=== PATIENT | male | born 1970 | race Hispanic/Latino ===

== ENCOUNTER 2022-01-31 14:33 | Inpatient (IN) | payer OTHER ==
[~2022-01-31] VITALS: Ht 167.6 cm; Wt 84.5 kg
[2022-01-31 14:58] LABS: BASOPHILS % (AUTO) 0.5 % (0.0-5.0); EOSINOPHILS % (AUTO) 2.7 % (0.0-8.0); HEMATOCRIT 41.4 % (42-54); LYMPHOCYTES % (AUTO) 16.3 % (21.0-51.0); MEAN CORPUSCULAR HEMOGLOBIN 27.9 pg (27.0-33.0); MEAN CORPUSCULAR HGB CONC 32.1 g/dL (32.0-36.0); MEAN CORPUSCULAR VOLUME 86.8 fL (79-99); MONOCYTES % (AUTO) 9.2 % (3.0-13.0); NEUTROPHILS % (AUTO) 70.8 % (40.0-77.0); PLATELET COUNT (AUTO) 294 K/uL (130-400); RED BLOOD CELL COUNT(AUTO) 4.77 MIL/uL (4.50-6.20)
[2022-01-31 15:08] LABS: CREATININE 1.1 mg/dL (0.5-1.5); POTASSIUM 3.7 mmol/L (3.5-5.1)
[2022-01-31 15:13] LABS: ALBUMIN 3.2 g/dL (3.5-5.0); BILIRUBIN,TOTAL 0.6 mg/dL (0.2-1.0); TOTAL PROTEIN, SERUM 7.9 g/dL (6.0-8.3)
[2022-01-31 15:27] LABS: APPEARANCE,URINE Clear (CLEAR); BILIRUBIN,URINE Negative (NEGATIVE); COLOR,URINE Dark Yellow (YELLOW); GLUCOSE, URINE (UA) Negative (NEGATIVE); KETONES,URINE Trace mg/dL (NEGATIVE); LEUKOCYTE ESTERASE ,URINE Negative (NEGATIVE); NITRATE,URINE Negative (NEGATIVE); OCCULT BLOOD,URINE Trace (NEGATIVE); PH,URINE 5.5 (5.0-8.0); PROTEIN,URINE POS 1+ mg/dL (NEGATIVE)
[2022-01-31 15:36] LABS: BACTERIA,URINE Few /HPF (None Seen); MUCUS,URINE Moderate LPF (None Seen); SQUAMOUS EPITHELIAL CELL,UR Few /HPF (0-2)
[2022-01-31] MEDS ORDERED: MORPHINE 2 MG SYG IV PRN (18:30)
[2022-01-31] MEDS ORDERED: ONDANSETRON 4MG INJ IV PRN (18:30)
[2022-01-31] MEDS: ZOSYN 3.375GM +NS 50ML IV SCH (18:35)
[2022-01-31] MEDS ORDERED: FAMOTIDINE 20MG VIAL IV SCH (21:00)
[2022-01-31 23:35] VITALS: BP 137/89
[2022-02-01] MEDS: 0.9%NACL 1000ML 1,000 ML IV SCH ×2 (04:30→14:55)
[2022-02-01 06:00] LABS: BASOPHILS % (AUTO) 0.4 % (0.0-5.0); EOSINOPHILS % (AUTO) 2.8 % (0.0-8.0); HEMATOCRIT 38.6 % (42-54); LYMPHOCYTES % (AUTO) 16.3 % (21.0-51.0); MEAN CORPUSCULAR HEMOGLOBIN 28.2 pg (27.0-33.0); MEAN CORPUSCULAR HGB CONC 33.7 g/dL (32.0-36.0); MEAN CORPUSCULAR VOLUME 83.7 fL (79-99); MONOCYTES % (AUTO) 9.2 % (3.0-13.0); PLATELET COUNT (AUTO) 281 K/uL (130-400); RED BLOOD CELL COUNT(AUTO) 4.61 MIL/uL (4.50-6.20); RED CELL DISTRIBUTION WIDTH 12.6 % (11.0-15.5); WHITE BLOOD COUNT (AUTO) 9.6 K/uL (4.8-10.8)
[2022-02-01 06:13] LABS: INR 0.98 (0.85-1.15); PROTHROMBIN TIME 10.7 SEC (9.6-11.6)
[2022-02-01 06:15] LABS: PARTIAL THROMBOPLASTIN TIME 27.5 SEC (26.3-35.5)
[2022-02-01 06:22] LABS: CREATININE 1.1 mg/dL (0.5-1.5); MAGNESIUM 1.9 mg/dL (1.80-2.40); PHOSPHORUS 3.5 mg/dL (2.5-4.9); POTASSIUM 3.3 mmol/L (3.5-5.1)
[2022-02-01] MEDS ORDERED: POTASSIUM CHLORIDE 20MEQ/100ML 100 ML IV PRN (07:00)
[2022-02-01] MEDS ORDERED: POTASSIUM CHLORIDE 10% ELIXIR 20 MEQ/15 ML UDCUP PO PRN (07:00)
[2022-02-01] MEDS ORDERED: LIDOCAINE HCL-MPF 1% 2ML VIAL IV PRN (07:00)
[2022-02-01] MEDS: KCL 20 MEQ ERTAB PO PRN ×3 (07:01→14:54)
[2022-02-01] MEDS ORDERED: DIATR MEGLU/DIATRIZOATE SODIUM 30 ML BOTTLE ONE (07:30)
[2022-02-01 08:00] VITALS: BP 127/77
[2022-02-01] MEDS ORDERED: IOHEXOL-350 75 ML VIAL IV ONE (11:15)
[2022-02-01] MEDS: FAMOTIDINE 20MG TAB PO SCH ×2 (12:59→21:38)
[2022-02-01 16:00] VITALS: BP 114/71
[2022-02-01] MEDS: ZOSYN 3.375GM +NS 50ML IV SCH (17:26)
[2022-02-01 20:00] VITALS: BP 151/84
[2022-02-02] VITALS (25 sets, daily range): BP systolic 128–158; BP diastolic 75–105
[2022-02-02] MEDS: 0.9%NACL 1000ML 1,000 ML IV SCH ×2 (00:30→16:01)
[2022-02-02 05:29] LABS: BASOPHILS % (AUTO) 0.6 % (0.0-5.0); EOSINOPHILS % (AUTO) 3.9 % (0.0-8.0); HEMATOCRIT 37.9 % (42-54); MEAN CORPUSCULAR HGB CONC 32.7 g/dL (32.0-36.0); MEAN CORPUSCULAR VOLUME 85.6 fL (79-99); MONOCYTES % (AUTO) 9.4 % (3.0-13.0); NEUTROPHILS % (AUTO) 64.6 % (40.0-77.0); PLATELET COUNT (AUTO) 291 K/uL (130-400); RED BLOOD CELL COUNT(AUTO) 4.43 MIL/uL (4.50-6.20); RED CELL DISTRIBUTION WIDTH 12.4 % (11.0-15.5); WHITE BLOOD COUNT (AUTO) 7.9 K/uL (4.8-10.8)
[2022-02-02 05:42] LABS: CREATININE 1.1 mg/dL (0.5-1.5); POTASSIUM 3.9 mmol/L (3.5-5.1)
[2022-02-02] MEDS: FAMOTIDINE 20MG TAB PO SCH ×2 (08:29→21:38)
[2022-02-02] MEDS ORDERED: CEFAZOLIN SODIUM 1 GM VIAL ONE ×3 (09:20→11:45)
[2022-02-02] MEDS ORDERED: LIDOCAINE 1%-EPI 1:100,000 20 ML VIAL IJ ONE (09:24)
[2022-02-02] MEDS ORDERED: BUPIVACAINE/PF 0.25% 30ML VIAL IJ ONE (09:24)
[2022-02-02] MEDS ORDERED: METOCLOPRAMIDE 10 MG/2 ML VIAL ONE (10:11)
[2022-02-02] MEDS ORDERED: PROPOFOL 10 MG/ML 20ML VIAL IV ONE (10:23)
[2022-02-02] MEDS ORDERED: MIDAZOLAM HCL 1 MG/ML 2ML VIAL ONE (10:23)
[2022-02-02] MEDS ORDERED: SUCCINYLCHOLINE CHLORIDE 20 MG/ML 10 ML VIAL ONE (10:23)
[2022-02-02] MEDS ORDERED: LIDOCAINE PF 100MG/5ML (2%) SYRINGE 5ML ONE (10:23)
[2022-02-02] MEDS ORDERED: ROCURONIUM 10MG/1ML SYR 10 MG/ML ML ONE (10:24)
[2022-02-02] MEDS ORDERED: FENTANYL CITRATE PF 50 MCG/1 ML 2ML VIAL ONE ×2 (10:24→10:58)
[2022-02-02] MEDS ORDERED: ONDANSETRON 4MG INJ ONE (10:34)
[2022-02-02] MEDS ORDERED: PIP/TAZ ZOSYN 3.375G 3.375 GM VIAL IVPB ONE (10:45)
[2022-02-02] MEDS ORDERED: PHENYLEPHRINE HCL 10 MG/ML 1ML VIAL IV ONE (10:46)
[2022-02-02] MEDS ORDERED: ZOSYN 3.375GM +NS 50ML IV ONE (11:30)
[2022-02-02] MEDS ORDERED: ROPIVACAINE 0.5% 5MG/ML 30ML IJ ONE (12:06)
[2022-02-02] MEDS ORDERED: 0.9%NACL 10ML VIAL ONE (12:07)
[2022-02-02] MEDS ORDERED: NEOSTIGMINE 5MG/5ML SYR IV ONE (12:22)
[2022-02-02] MEDS ORDERED: GLYCOPYRROLATE 1 MG/5 ML SYRINGE ONE (12:22)
[2022-02-02] MEDS ORDERED: MEPERIDINE-PF 25 MG/ML SYG ONE ×3 (13:05→13:37)
[2022-02-02] MEDS: MORPHINE 4 MG SYG IV PRN ×2 (18:06→23:02)
[2022-02-03] MEDS: 0.9%NACL 1000ML 1,000 ML IV SCH (00:11)
[2022-02-03] MEDS: MORPHINE 4 MG SYG IV PRN (04:09)
[2022-02-03] MEDS ORDERED: HYDROMORPHONE 1 MG INJ IVP ONE (04:30)
[2022-02-03 04:38] VITALS: BP 164/95
[2022-02-03] MEDS ORDERED: HYDROMORPHONE 1 MG INJ IVP PRN (05:00)
[2022-02-03 05:16] LABS: BASOPHILS % (AUTO) 0.3 % (0.0-5.0); EOSINOPHILS % (AUTO) 0.4 % (0.0-8.0); HEMATOCRIT 38.7 % (42-54); LYMPHOCYTES % (AUTO) 9.7 % (21.0-51.0); MEAN CORPUSCULAR HEMOGLOBIN 28.5 pg (27.0-33.0); MEAN CORPUSCULAR HGB CONC 34.1 g/dL (32.0-36.0); MEAN CORPUSCULAR VOLUME 83.6 fL (79-99); MONOCYTES % (AUTO) 10.7 % (3.0-13.0); NEUTROPHILS % (AUTO) 78.2 % (40.0-77.0); PLATELET COUNT (AUTO) 324 K/uL (130-400); RED BLOOD CELL COUNT(AUTO) 4.63 MIL/uL (4.50-6.20); RED CELL DISTRIBUTION WIDTH 12.6 % (11.0-15.5); WHITE BLOOD COUNT (AUTO) 11.7 K/uL (4.8-10.8)
[2022-02-03] MEDS: ZOSYN 3.375GM +NS 50ML IV SCH ×3 (05:23→20:29)
[2022-02-03] MEDS: OXYCODONE/ACETAMIN 5/325MG TAB PO PRN ×3 (05:39→17:56)
[2022-02-03 05:48] LABS: ALBUMIN 2.7 g/dL (3.5-5.0); BILIRUBIN,TOTAL 0.6 mg/dL (0.2-1.0); CREATININE 1.4 mg/dL (0.5-1.5); POTASSIUM 3.9 mmol/L (3.5-5.1)
[2022-02-03 07:45] VITALS: BP 157/98
[2022-02-03] MEDS: FAMOTIDINE 20MG TAB PO SCH ×2 (09:06→20:29)
[2022-02-03 11:40] VITALS: BP 153/93
[2022-02-03 15:45] VITALS: BP 131/87
[2022-02-03 21:49] VITALS: BP 123/87
[2022-02-03 23:54] VITALS: BP 155/91
[2022-02-04] MEDS: 0.9%NACL 1000ML 1,000 ML IV SCH (02:08)
[2022-02-04 04:24] VITALS: BP 156/94
[2022-02-04 05:30] LABS: HEMATOCRIT 35.5 % (42-54); MEAN CORPUSCULAR HEMOGLOBIN 27.4 pg (27.0-33.0); MEAN CORPUSCULAR HGB CONC 32.1 g/dL (32.0-36.0); MEAN CORPUSCULAR VOLUME 85.3 fL (79-99); RED BLOOD CELL COUNT(AUTO) 4.16 MIL/uL (4.50-6.20); RED CELL DISTRIBUTION WIDTH 12.7 % (11.0-15.5)
[2022-02-04 05:42] LABS: CREATININE 1.1 mg/dL (0.5-1.5); POTASSIUM 3.3 mmol/L (3.5-5.1)
[2022-02-04] MEDS: ZOSYN 3.375GM +NS 50ML IV SCH ×3 (05:51→21:07)
[2022-02-04] MEDS: KCL 20 MEQ ERTAB PO PRN ×4 (05:52→21:07)
[2022-02-04 07:45] VITALS: BP 160/97
[2022-02-04] MEDS: FAMOTIDINE 20MG TAB PO SCH ×2 (10:20→21:07)
[2022-02-04 11:45] VITALS: BP 157/105
[2022-02-04] MEDS ORDERED: BISACODYL 10 MG SUPP.RECT RC ONE (13:30)
[2022-02-04] MEDS ORDERED: MAGNESIUM CITRATE 296 ML SOLUTION PO ONE (13:30)
[2022-02-04 15:20] VITALS: BP 146/83
[2022-02-04] MEDS: KETOROLAC 30MG VIAL (30MG/ML) IVP PRN (19:20)
[2022-02-04 20:11] VITALS: BP 149/90
[2022-02-04 23:58] VITALS: BP 138/89
[2022-02-05] MEDS: KETOROLAC 30MG VIAL (30MG/ML) IVP PRN (03:49)
[2022-02-05 04:00] VITALS: BP 141/92
[2022-02-05 05:18] LABS: MEAN CORPUSCULAR HEMOGLOBIN 28.2 pg (27.0-33.0); MEAN CORPUSCULAR HGB CONC 32.6 g/dL (32.0-36.0); MEAN CORPUSCULAR VOLUME 86.4 fL (79-99); RED BLOOD CELL COUNT(AUTO) 4.4 MIL/uL (4.50-6.20); RED CELL DISTRIBUTION WIDTH 12.7 % (11.0-15.5); WHITE BLOOD COUNT (AUTO) 10.3 K/uL (4.8-10.8)
[2022-02-05 05:27] LABS: CREATININE 1.1 mg/dL (0.5-1.5); POTASSIUM 4.3 mmol/L (3.5-5.1)
[2022-02-05] MEDS: ZOSYN 3.375GM +NS 50ML IV SCH (05:33)
[2022-02-05] MEDS: FAMOTIDINE 20MG TAB PO SCH (08:43)
[2022-02-05] MEDS: OXYCODONE/ACETAMIN 5/325MG TAB PO PRN (08:47)
[2022-02-05] MEDS ORDERED: LEVO500T90 PO (09:15)
[2022-02-05] MEDS ORDERED: METR-172 PO (09:15)
[2022-02-05 10:30] VITALS: BP 132/71
== END 2022-02-05 12:00 | disposition home or self-care (01) | DRG 416 ==
LOC: EDH 14:33 → EDHIP 14:34 → OBSVTOIN 14:34 → 3BH 22:55
PROVIDERS: ADMIT Hospitalist; ATTEND Hospitalist
PROC: 3E0T3BZ Introduction of Anesthetic Agent into Peripheral Nerves and Plexi, Percutaneous Approach (ICD-10-PCS; 2022-02-02)
PROC: 0FT40ZZ Resection of Gallbladder, Open Approach (ICD-10-PCS; principal; 2022-02-02 10:21)
PROC: 0FJ44ZZ Inspection of Gallbladder, Percutaneous Endoscopic Approach (ICD-10-PCS; 2022-02-02 10:21)
PROC: 0WQF0ZZ Repair Abdominal Wall, Open Approach (ICD-10-PCS; 2022-02-02 10:21)
DX: K80.00 Calculus of gallbladder with acute cholecystitis without obstruction (principal); E87.6 Hypokalemia; Z20.822 Contact with and (suspected) exposure to COVID-19; K42.9 Umbilical hernia without obstruction or gangrene
CPT/HCPCS: 36415; 74177; 76705; 80048; 80053; 81001; 83690; 83735; 84100; 85025; 85027; 85610; 85730; 86850; 86900; 86901; 87635; 93005; G0378; J0330; J0690; J1885; J2001; J2175; J2250; J2270; J2370; J2405; J2543; J2704; J2710; J2765; J2795; J3010; J3490; J7030; J7120; Q9963; Q9967